=== PATIENT | male | born 1965 | race Caucasian/White ===

== ENCOUNTER 2016-12-02 15:55 | Emergency (ER) | payer OTHER, MEDICAID ==
[~2016-12-02] VITALS: Ht 160 cm; Wt 77.1 kg
[2016-12-02 17:14] LABS: BASOPHIL % 0.4 % (0-2); PLATELET COUNT 269 x10^3mcL (130-400)
[2016-12-02 17:19] LABS: CALCIUM 8.2 mg/dL (8.5-10.1); CHLORIDE SERUM 104 mmol/L (98-107); CREATININE SERUM 0.8 mg/dL (0.7-1.3); GFR1 > 60 mL/min; GLUCOSE SERUM 106 mg/dL (74-106); POTASSIUM SERUM 3.4 mmol/L (3.5-5.1); SODIUM SERUM 138 mmol/L (136-145)
[2016-12-02 17:31] LABS: ALBUMIN 3.4 g/dL (3.4-5.0); ALKALINE PHOSPHATASE 60 U/L (46-116); ALT/SGPT 17 U/L (16-63); AST/SGOT 24 U/L (15-37); BILIRUBIN TOTAL 0.1 mg/dL (0.20-1.00); FREE T4 0.92 ng/dL (0.76-1.46); TOTAL PROTEIN, SERUM 7.7 g/dL (6.4-8.2)
[2016-12-02 17:52] LABS: AMPHETAMINE QUAL UR NONE DETECTED (NEG <=1000)
[2016-12-02 22:07] VITALS: BP 128/76
== END 2016-12-02 22:07 | disposition home or self-care (01) ==
LOC: ED 15:55
PROVIDERS: Emergency Medicine
DX: R45.851 Suicidal ideations (principal); F32.9 Major depressive disorder, single episode, unspecified; I10 Essential (primary) hypertension; M19.90 Unspecified osteoarthritis, unspecified site
CPT/HCPCS: 36415; 84439; G0480

== ENCOUNTER 2018-06-07 16:48 | Observation (INO) | payer OTHER, MEDICAID ==
[~2018-06-07] VITALS: Ht 165.1 cm; Wt 83.2 kg
[2018-06-07 16:57] VITALS: Ht 165.1 cm; Wt 83.2 kg
[2018-06-07 17:46] LABS: BASOPHIL % 0.8 % (0-2); PLATELET COUNT 277 x10^3mcL (130-400)
[2018-06-07 17:52] LABS: RED CELL DISTRIBUTION WIDTH 14.6 % (11.5-14.5)
[2018-06-07 17:56] LABS: CALCIUM 8.7 mg/dL (8.5-10.1); CARBON DIOXIDE 27.9 mmol/L (21-32); CHLORIDE SERUM 103 mmol/L (98-107); CREATININE SERUM 0.9 mg/dL (0.7-1.3); GFR1 > 60 mL/min; GLUCOSE SERUM 135 mg/dL (74-106); POTASSIUM SERUM 4.1 mmol/L (3.5-5.1); SODIUM SERUM 140 mmol/L (136-145)
[2018-06-07 18:02] LABS: ALBUMIN 3.5 g/dL (3.4-5.0); ALKALINE PHOSPHATASE 62 U/L (46-116); ALT/SGPT 10 U/L (16-63); AST/SGOT 22 U/L (15-37); BILIRUBIN TOTAL 0.17 mg/dL (0.20-1.00); TOTAL PROTEIN, SERUM 7.7 g/dL (6.4-8.2)
[2018-06-07 18:19] LABS: microscopic required? NO
[2018-06-07 18:32] LABS: urine erythrocyte NEGATIVE (NEGATIVE)
[2018-06-07 18:39] LABS: AMPHETAMINE QUAL UR NONE DETECTED (See below)
[2018-06-08 14:32] VITALS: BP 113/97
== END 2018-06-08 14:32 | disposition home or self-care (01) | DRG 885 ==
LOC: ED 16:48 → EDBEDREQDT 06-08 00:01 → EDBEDREQ 06-08 00:01 → EDBEDREQTM 06-08 00:01 → DU 06-08 00:01
PROVIDERS: Specialist; ADMIT Internal Medicine Pulmonary Disease
DX: F31.9 Bipolar disorder, unspecified (principal); F10.129 Alcohol abuse with intoxication, unspecified; Y90.4 Blood alcohol level of 80-99 mg/100 ml; Z91.14 Patient's other noncompliance with medication regimen
CPT/HCPCS: 99406; G0378; G0480